=== PATIENT | female | born 1965 | race Caucasian/White ===

== ENCOUNTER → 2018-01-23 | Day surgery (SDC) | payer OTHER ==
[~2018-01-23] MED LIST: FENTANYL CITRATE/PF 100MCG/2 ML INJ ONE; HYOSCYAMINE SULFATE 0.5 MG/ML INJ ONE; MIDAZOLAM HCL 2 MG/2 ML VIAL ONE; PROPOFOL IV EMULSION 10 MG/ML 50 ML VIAL ONE
[2018-01-23 14:15] VITALS: BP 113/82
--- NOTE | 2018-01-23 15:00 | Operative Report ---
DATE OF PROCEDURE: January 23, 2018 REFERRING PHYSICIAN: Dr. Jody Sutton PROCEDURE PERFORMED: Colonoscopy and polypectomy. INDICATIONS FOR COLONOSCOPY: Colorectal cancer screening. MEDICATION: Patient was done under MAC. Please see anesthesiologist's note. PROCEDURE: With the patient in the left lateral decubitus position, the flexible fiberoptic Olympus colonoscope was inserted into the rectum with ease and advanced all the way to the cecum. Prep overall was suboptimal with scattered stools in the colon. The scope was then withdrawn slowly. Whatever was visualized of the mucosa overlying the cecum, ascending colon, transverse colon, descending colon grossly appeared to be within normal limits. One polyp was hot biopsied from the sigmoid. The rectum appeared to be within normal limits. The scope was then retroflexed into the distal rectum and small internal hemorrhoids were noted, none of which was actively bleeding. A single hypertrophic anal papilla was also noted. The scope was then straightened out. It was subsequently withdrawn. Patient tolerated the procedure well. IMPRESSION 1. Suboptimal prep. 2. Sigmoid colon polyp, hot biopsied. 3. Internal hemorrhoids, none actively bleeding. 4. Hypertrophic anal papillae. PLAN: Follow up histology. Initiate high-fiber and low-fat diet. Initiate high-fiber supplement. The patient might benefit from a followup colonoscopy in 1 year due to the fact that she had a suboptimal prep to rule out synchronous colorectal neoplasm. Job#: [id number] RI cc:JODY SUTTON MD
== END | disposition home or self-care (01) ==
LOC: OR 10:54
PROVIDERS: ATTEND Internal Medicine Gastroenterology
DX: Z12.11 Encounter for screening for malignant neoplasm of colon (principal); D12.5 Benign neoplasm of sigmoid colon; K59.00 Constipation, unspecified; K64.8 Other hemorrhoids; K62.89 Other specified diseases of anus and rectum; B18.2 Chronic viral hepatitis C
CPT/HCPCS: 45384; 81025; 93005; J1980; J2250; 45378